=== PATIENT | male | born 1990 | race Caucasian/White ===

== ENCOUNTER 2017-06-21 09:27 | Emergency (ER) | payer MEDICAID ==
[2017-06-21] MEDS ORDERED: Albuterol/Ipratropium Neb 3 ML AERS HHN ONE ×2 (10:00→10:06)
--- NOTE | 2017-06-21 10:06 | ED Physician Chart ---
ED Chief Complaint/HPI - Patient Information Date Seen:: 06/21/17 Time Seen:: 09:50 Chief Complaint:: chest pain History of Present Illness:: Patient has had the pleuritic chest pain across his upper chest for last 2 days. He has had about 2 episodes a day one in the morning and one in the afternoon each lasting about 20 minutes. He is also had shortness of breath for last 2 days unrelated to his pleuritic chest pain. Patient's last episode of coughing with 2 weeks ago. The patient was prescribed an inhaler in the past it worked for a short period of time. Vitals:: Vital Signs - 8 hr 06/21/17 09:43 Temp 97.9 F HR 99 RR 16 BP 147/97 O2 Sat % 98 Historian:: Patient Review:: Nurse's Note Reviewed ED Review of Systems - Review of Systems General/Constitutional: No fever, No chills Skin: No skin lesions Head: No headache Eyes: No loss of vision ENT: No earache Neck: No neck pain Cardio Vascular: Chest pain Pulmonary: SOB GI: No nausea, No vomiting, No diarrhea G/U: No dysuria, No hematuria Musculoskeletal: No bone or joint pain, No back pain, No muscle pain Psychiatric: No prior psych history, No depression, No anxiety Hematopoietic: No bruising Allergic/Immuno: No urticaria Neurological: No syncope, No focal symptoms ED Past Medical History - Past Medical History Past Medical History: No significant medical hx Family History: Other (father has diabetes and bilateral allergies) Social History: Non Smoker, No Alcohol Surgical History: None Psychiatricy History: None Medication Reviewed:: Patient has in the past been prescribed an inhaler Family Medical History - Family Member Father Ethnicity: Living Status: Still Living Hx Family Cancer: No Hx Family Coronary Artery Disease: No Hx Family Congestive Heart Failure: No Hx Family Hypertension: No Hx Family Stroke: No Hx Family Diabetes: Yes Hx Family Seizures: No Hx Family Dementia: No Hx Family AIDS: No Hx Family COPD: No Hx Family Hepatitis: No Hx Family Psychiatric Problems: No Hx Family Tuberculosis: No Mother History Unknown: Yes Ethnicity: Living Status: Still Living Hx Family Cancer: No Hx Family Coronary Artery Disease: No Hx Family Congestive Heart Failure: No Hx Family Hypertension: No Hx Family Stroke: No Hx Family Diabetes: Yes Hx Family Seizures: No Hx Family Dementia: No Hx Family AIDS: No Hx Family HIV: No Hx Family COPD: No Hx Family Hepatitis: No Hx Family Psychiatric Problems: No Hx Family Tuberculosis: No ED Labs/Radiology/EKG Results - EKG Interpretations Rate & Rhythm: NSR; rate 80; no ST-T changes [place]: normal ED Assessment - Assessment General Assessment: Patient's chest pain is most likely due to reactive airway disease not to a heart problem. Patient felt slightly better after the breathing treatment but auscultation of the chest was unchanged with slightly decreased expiratory sounds. ED Septic Shock - . Is Septic Shock (SBP<90, OR Lactate>4 mmol\L) present?: No - <6hrs of presentation: Vital Signs: Vital Signs - 8 hr 06/21/17 09:43 Temp 97.9 F HR 99 RR 16 BP 147/97 O2 Sat % 98 ED Reassessment (Disposition) - Reassessment Reassessment Condition:: Improved - Diagnosis Diagnosis:: Reactive airway disease - Aftercare/Follow up Instructions Aftercare/Follow-Up Instructions:: Refer to Discharge Instructions Medication Prescribed:: Albuterol metered-dose inhaler to use 2 puffs every 4 hours as necessary for chest pain and or shortness of breath. - Patient Disposition Discharge/Transfer:: Home Condition at Disposition:: Stable, Improved ED Discharge Plan - Patient Disposition Prescriptions: Albuterol Nebulizer 2.5mg/3mL [Albuterol Neb UD*] 1 vial HHN Q4H PRN #50 vial PRN Reason: Shortness Of Breath Instructions: Shortness of Breath, [id number], Reactive Airway Disease, Child , [id number] Additional Instructions: Instructions regarding HHN use reviewed with pt. and pt. stated understanding. Follow-up with primary MD in 2-3 days.
== END 2017-06-21 10:50 | disposition home or self-care (01) ==
LOC: ER 09:27
DX: J45.909 Unspecified asthma, uncomplicated (principal)
CPT/HCPCS: 94640; Z7502

== ENCOUNTER 2017-10-11 08:39 | Emergency (ER) | payer MEDICAID ==
[2017-10-11] MEDS ORDERED: Silver Nitrate 1 Swab TP STA (09:28)
[2017-10-11] MEDS ORDERED: Silver Nitrate 1 Swab TP ONE (09:28)
--- NOTE | 2017-10-11 09:34 | ED Physician Chart ---
ED Chief Complaint/HPI - Patient Information Date Seen:: 10/11/17 Time Seen:: 09:25 Chief Complaint:: bleeding lesion on chin History of Present Illness:: Spontaneous onset yesterday of bleeding site on the patient's chin. Bleeding has continued. Allergies:: Allergies Allergy/AdvReac Type Severity Reaction Status Date / Time No Known Allergies Allergy Verified 10/11/17 09:16 Vitals:: Vital Signs - 8 hr 10/11/17 09:11 HR 72 RR 16 BP 143/81 O2 Sat % 98 Historian:: Patient Review:: Nurse's Note Reviewed ED Review of Systems - Review of Systems General/Constitutional: No fever, No chills, No weight loss, No weakness, No diaphoresis, No edema, No loss of appetite Skin: Skin lesions, No rash, No bruising Head: No headache, No light-headedness Eyes: No loss of vision, No pain, No diplopia ENT: No earache, No nasal drainage, No sore throat, No tinnitus Neck: No neck pain, No swelling, No thyromegaly, No stiffness, No mass noted Cardio Vascular: No chest pain, No palpitations, No PND, No orthopnea, No edema Pulmonary: No SOB, No cough, No sputum, No wheezing GI: No nausea, No vomiting, No diarrhea, No pain, No melena, No hematochezia, No constipation, No hematemesis G/U: No dysuria, No frequency, No hematuria Musculoskeletal: No bone or joint pain, No back pain, No muscle pain Endocrine: No polyuria, No polydipsia Psychiatric: No prior psych history, No depression, No anxiety, No suicidal ideation Hematopoietic: No bruising, No lymphadenopathy Allergic/Immuno: No urticaria, No angioedema Neurological: No syncope, No focal symptoms, No weakness, No paresthesia, No headache, No seizure, No dizziness, No confusion, No vertigo ED Past Medical History - Past Medical History Past Medical History: No significant medical hx Family History: Diabetes Melitus Social History: Non Smoker, No Alcohol Surgical History: None Psychiatricy History: None Medication: None Family Medical History - Family Member Father Ethnicity: Living Status: Still Living Hx Family Cancer: No Hx Family Coronary Artery Disease: No Hx Family Congestive Heart Failure: No Hx Family Hypertension: No Hx Family Stroke: No Hx Family Diabetes: Yes Hx Family Seizures: No Hx Family Dementia: No Hx Family AIDS: No Hx Family COPD: No Hx Family Hepatitis: No Hx Family Psychiatric Problems: No Hx Family Tuberculosis: No Mother History Unknown: Yes Ethnicity: Living Status: Still Living Hx Family Cancer: No Hx Family Coronary Artery Disease: No Hx Family Congestive Heart Failure: No Hx Family Hypertension: No Hx Family Stroke: No Hx Family Diabetes: Yes Hx Family Seizures: No Hx Family Dementia: No Hx Family AIDS: No Hx Family HIV: No Hx Family COPD: No Hx Family Hepatitis: No Hx Family Psychiatric Problems: No Hx Family Tuberculosis: No ED Physical Exam - Physical Examination General/Constitutional: Awake, Well-developed, well-nourished, Alert, No distress, GCS 15, Non-toxic appearing, Ambulatory Head: Atraumatic Eyes: Lids, conjuctiva normal, PERRL, EOMI Other Skin comments:: 1-2 mm bleeding site left-sided chin barely oozing blood. ENMT: External ears, nose nl, Nasal exam nl, Lips, teeth, gums nl Neck: Nontender, Full ROM w/o pain, No JVD, No nuchal rigidity, No bruit, No mass, No stridor Respiratory: Nl effort/Exclusion, Clear to Auscultation, No Wheeze/Rhonchi/Rales Cardio Vascular: RRR, No murmur, gallop, rubs, NL S1 S2 GI: No tenderness/rebounding/guarding, No organomegaly, No hernia, Normal BS's, Nondistended, No mass/bruits, No McBurney tenderness : No CVA tenderness Extremities: No tenderness or effusion, Full ROM, normal strength in all extremities, No edema, Normal digits & nails Neuro/Psych: Alert/oriented, DTR's symmetric, Normal sensory exam, Normal motor strength, Judgement/insight normal, Mood normal, Normal gait, No focal deficits Misc: Normal back, No paraspinal tenderness ED Assessment - Procedures Procedures:: Silver nitrate stick used to cauterize a bleeding site; bleeding subsided; Band -Aid applied ED Septic Shock - . Is Septic Shock (SBP<90, OR Lactate>4 mmol\L) present?: No - <6hrs of presentation: Vital Signs: Vital Signs - 8 hr 10/11/17 09:11 HR 72 RR 16 BP 143/81 O2 Sat % 98 ED Reassessment (Disposition) - Reassessment Reassessment:: Suggested follow-up with leather cutter Reassessment Condition:: Improved - Diagnosis Diagnosis:: Bleeding nevus - Aftercare/Follow up Instructions Aftercare/Follow-Up Instructions:: Refer to Discharge Instructions - Patient Disposition Discharge/Transfer:: Home Condition at Disposition:: Stable, Improved
== END 2017-10-11 09:49 | disposition home or self-care (01) ==
LOC: ER 08:39
DX: S01.81XA Laceration without foreign body of other part of head, initial encounter (principal); X58.XXXA Exposure to other specified factors, initial encounter; Y93.89 Activity, other specified; Y92.89 Other specified places as the place of occurrence of the external cause; Y99.8 Other external cause status
CPT/HCPCS: Z7502